=== PATIENT | female | born 1985 | race African-American/Black ===

== ENCOUNTER 2023-01-10 20:08 | Emergency (ER) | payer OTHER ==
[~2023-01-10] VITALS: Ht 170.2 cm; Wt 72.0 kg
[2023-01-10 20:20] VITALS: O2SAT 100
[2023-01-10 20:49] VITALS: TEMP 97.3
[2023-01-10] MEDS ORDERED: LEVETIRACETAM 500MG PREMIX 100 ML IV ONE (21:15)
[2023-01-10] MEDS ORDERED: LACO50TA2 MT (21:30)
[2023-01-10] MEDS ORDERED: LACOSAMIDE 100 MG TABLET PO NR (21:45)
[2023-01-10 22:02] VITALS: BP 109/66; PULSE 68; RESP 16
== END 2023-01-10 22:03 | disposition home or self-care (01) ==
LOC: ER 20:08 → EDBD 20:08 → ER 22:03
DX: G40.909 Epilepsy, unspecified, not intractable, without status epilepticus (principal)
CPT/HCPCS: 82962; 80339; 93005; 99283; Z7610